=== PATIENT | female | born 1990 | race Caucasian/White ===

== ENCOUNTER → 2018-07-31 | Outpatient (CLI) | payer OTHER | LOC: GMAJ 16:57 | PROVIDERS: ATTEND Family Medicine | DX: R53.83 Other fatigue (principal) ==

== ENCOUNTER → 2018-09-15 | Outpatient (CLI) | payer OTHER ==
--- NOTE | 2018-09-15 11:17 | RAD ---
EXAM DESCRIPTION: Pelvis CLINICAL HISTORY: PAIN IN RT HIP COMPARISON: None. IMPRESSION: Single AP supine view of the pelvis shows no evidence of acute fracture, focal bone destruction, or joint dislocation. No advanced arthrosis is identified. Electronically signed by: Edmund Nava MD 09/15/2018 11:16 AM CDT
== END ==
LOC: RAD 09:42
PROVIDERS: ATTEND Orthopaedic Surgery
DX: M25.551 Pain in right hip (principal)

== ENCOUNTER → 2018-09-19 | Outpatient (CLI) | payer OTHER ==
--- NOTE | 2018-09-19 12:27 | MRI ---
MRI right knee without contrast INDICATION: Meniscal tear knee pain initial encounter TECHNIQUE: Noncontrast MR imaging right knee standard protocol FINDINGS: There is a diffuse ACL tear full-thickness with pivot shift contusions posterior lateral tibial plateau and lateral femoral condyle. Stinson's cyst measuring nearly 5 cm craniocaudal. PCL is intact. Extensor tendons are intact. Mild grade 1 fibular collateral sprain. MCL is intact. Mild lateral patellar tilt and minimal lateral patellar tracking. There is a posterior lateral corner muscular strain adjacent to the fibula. Fairly large joint effusion/hemarthrosis. IMPRESSION: Acute ACL tear right knee complete with acute pivot shift contusions Mild grade 1 fibular collateral sprain Posterior lateral corner muscular strain especially lateral soleus region Moderate to large joint effusion Small partially ruptured Stinson's cyst Electronically signed by: Devan Hurley MD 09/19/2018 12:26 PM CDT
== END ==
LOC: MRI 08:57
PROVIDERS: ATTEND Orthopaedic Surgery
DX: S83.241A Other tear of medial meniscus, current injury, right knee, initial encounter (principal); S83.511A Sprain of anterior cruciate ligament of right knee, initial encounter; M66.0 Rupture of popliteal cyst; M25.461 Effusion, right knee

== ENCOUNTER → 2020-08-23 | Outpatient (CLI) | payer OTHER | LOC: GMAJ 16:41 | PROVIDERS: ATTEND Family Medicine | DX: R10.13 Epigastric pain (principal) ==

== ENCOUNTER → 2020-08-29 | Outpatient (CLI) | payer OTHER ==
--- NOTE | 2020-08-29 12:22 | CT ---
EXAM DESCRIPTION: Abdomen/Pelvis w/wo Contrast CLINICAL HISTORY: 30 years Female, INTRA-ABDOMINAL AND PELVIC SWELLING, MASS AND LUMP TECHNIQUE: This exam was performed according to our departmental dose-optimization program, which includes automated exposure control, adjustment of the mA and/or kV according to patient size and/or use of iterative reconstruction technique. COMPARISON: None at time of initial interpretation. FINDINGS: Visualized lung bases are grossly unremarkable. The liver is unremarkable. No suspicious hepatic lesion. No biliary dilatation. The gallbladder is unremarkable. The portal vein is patent. The spleen, pancreas and adrenal glands are unremarkable. Symmetric renal parenchymal enhancement. No hydronephrosis. No urolithiasis. Unremarkable bladder. The uterus is anteverted. Large nonenhancing cystic mass in the abdomen and pelvis measuring 30 x 22 x 10 cm. No evidence of bowel obstruction or focal inflammatory change. No findings to suggest appendicitis. Normal appendix. No adenopathy. No focal fluid collection. No free air. Normal caliber abdominal aorta. No acute or suspicious osseous abnormality. IMPRESSION: Large nonenhancing cystic mass in the abdomen and pelvis measuring 30 cm, which may be adnexal in origin. Recommend surgical consultation. Electronically signed by: Vidal Murphy MD 08/29/2020 12:20 PM CDT
--- NOTE | 2020-08-29 16:32 | US ---
PROVIDED CLINICAL HISTORY/REASON FOR EXAM: RIGHT UPPER QUADRANT PAIN COMPARISON STUDY: Same day CT. TECHNIQUE: Grayscale and limited doppler examination of the abdomen was obtained. FINDINGS: Pancreas: Obscured by bowel gas. Liver: Parenchymal morphology is unremarkable. No intrahepatic masses are identified. No significant intrahepatic biliary system dilatation. CBD: Measures 4 mm. Within normal limits for age. Gallbladder: Normal with no stones or wall thickening. Kidneys: Both are normal in size and shape. The right kidney measures 8.9 x 4.1 x 4.5 cm. The left kidney measures 10.8 x 6.0 x 4.4cm. No suspicious masses are seen. No hydronephrosis noted. Spleen: Normal sonographic appearance. The spleen measures 13.1 cm in length. Retroperitoneal structures: IVC is unremarkable in appearance. Aorta is without evidence of aneurysm formation. Redemonstrated cystic lesion in the abdomen and pelvis measuring at least 30 cm. IMPRESSION: Redemonstrated large cystic lesion in the abdomen and pelvis measuring at least 30 cm. Recommend surgical consultation. Electronically signed by: Vidal Murphy MD 08/29/2020 4:30 PM CDT
== END ==
LOC: US 09:57
PROVIDERS: ATTEND Family Medicine
DX: R19.00 Intra-abdominal and pelvic swelling, mass and lump, unspecified site (principal); R10.11 Right upper quadrant pain

== ENCOUNTER → 2020-09-02 | Outpatient (CLI) | payer OTHER | LOC: GMAJ 13:54 | PROVIDERS: ATTEND Family Medicine | DX: R19.00 Intra-abdominal and pelvic swelling, mass and lump, unspecified site (principal) ==

== ENCOUNTER 2020-10-09 10:04 | Emergency (ER) | payer OTHER ==
[2020-10-09] MEDS ORDERED: SODIUM CHLORIDE 0.9% 1000ML 1,000 ML IVS ONE (10:15)
[2020-10-09] MEDS ORDERED: MORPHINE SULFATE INJ 10 MG/ML VIAL IV ONE (10:15)
[2020-10-09] MEDS ORDERED: ONDANSETRON INJ 4 MG/2 ML VIAL IV ONE (10:15)
--- NOTE | 2020-10-09 10:18 | ED.PDOC ---
History of Present Illness - General Time Seen by Provider: 10/09/20 10:12 Source: patient, RN notes reviewed, Vital Signs reviewed, family Exam Limitations: no limitations - History of Present Illness Initial Comments: Patient is a 30-year-old female who presents to ED with constipation and lower abdominal pain. States she had surgery at [facility] 10 days ago for removal of a right ovarian cyst that was approximately 10 cm. States she has been taking Tylenol with codeine and Colace at home. States she has not had a bowel movement in the past 4 days and developed nausea this morning. She called her surgeon's nurse who told her to come to ED for evaluation. She denies fever, vomiting, chills, difficulty urinating or dysuria. Allergies/Adverse Reactions: Allergies Penicillins Allergy (Verified 10/09/20 11:00) Home Medications: Ambulatory Orders Acetaminophen W/ Codeine [Tylenol W/ CODEINE #3] 1 ea PO Q6H PRN 10/09/20 Bisacodyl Suppository 10Mg [Dulcolax Suppository 10mg] 1 ea SC DAILY PRN #5 sup 10/09/20 Duloxetine HCl [Cymbalta] 60 mg PO DAILY 10/09/20 Polyethylene Glycol 3350 [Miralax] 17 gm PO DAILY 15 Days #238 bottle 10/09/20 Review of Systems - Review of Systems Constitutional: Denies: chills, fever, weakness EENTM: Denies: nose congestion, throat pain Respiratory: Denies: cough, short of breath Cardiology: Denies: chest pain, edema, palpitations Gastrointestinal/Abdominal: States: abdominal pain, constipation, nausea. Denies: diarrhea, vomiting Genitourinary: Denies: dysuria, frequency Musculoskeletal: Denies: back pain, neck pain Skin: States: no symptoms reported Neurological: Denies: headache All other Systems: Reviewed and Negative Family Medical History - Family History Mother Family History: No Known Living Status: Still Living Physical Exam - Physical Exam General Appearance: Alert, Comfortable, No apparent distress Neck: full range of motion, supple Respiratory: chest non-tender, lungs clear, normal breath sounds, no respiratory distress Cardiovascular/Chest: regular rate, rhythm, no edema, no murmur Gastrointestinal/Abdominal: other - soft. TTP bilateral lower quadrants. Midline vertical surgical incision is c/d/i. No erythema. Steristrips in place Back Exam: no CVA tenderness, no vertebral tenderness Extremity: normal range of motion, non-tender Neurologic: no motor/sensory deficits, alert, normal mood/affect Skin Exam: normal color, warm/dry Progress - Progress Progress: 10/09/20 10:20 DDX: bowel obstruction, constipation, appendicitis, colitis, biliary colic 10/09/20 12:23 Patient presents to ED for constipation and lower abdominal pain. Vital signs are reassuring. CT A/P performed to evaluate for bowel obstruction and shows postoperative changes with no acute findings. Pain is well controlled at this t dieter and patient is tolerating p.o. fluids well. She feels comfortable going home on laxatives for constipation and will follow up with her surgeon in 1 to 2 days for continued evaluation. Strict return precautions given. - Results/Orders Results/Orders: CT ABD/PELVIS IMPRESSION: 1. Status post removal of large pelvic cyst. There is no acute abnormality identified. No ileus or bowel obstruction. There is a small amount of intraperitoneal free air that is present. This is compatible with recent surgery. There is also a small focus of free fluid in the lower pelvis. No abscess. 2. Very small right pleural effusion and associated dependent atelectasis. 3. 3.5 cm left adnexal cyst. This is unlikely the cause of patient's symptoms. 10/09/20 10:15 Hold Metformin x 48Hrs [id number] Laboratory Results - last 24 hr 10/09/20 10/09/20 10/09/20 10:31 10:31 10:31 WBC 8.1 RBC 4.66 Hgb 14.2 Hct 41.4 MCV 88.9 MCH 30.5 MCHC 34.3 RDW 12.9 Plt Count 230 MPV 8.3 Absolute Neuts (auto) 6.50 Absolute Lymphs (auto) 0.90 L Absolute Monos (auto) 0.50 Absolute Eos (auto) 0.10 Absolute Basos (auto) 0.00 Neutrophils % 80.2 H Lymphocytes % 11.3 L Monocytes % 6.5 Eosinophils % 1.5 Basophils % 0.5 Sodium 137 Potassium 3.8 Chloride 101 Carbon Dioxide 26 Anion Gap 13.8 BUN 11 Creatinine 0.94 BUN/Creatinine Ratio 11.7 Random Glucose 101 Serum Osmolality 273.4 L Calcium 8.9 Total Bilirubin 0.7 AST 27 ALT 36 Alkaline Phosphatase 42 Serum Total Protein 7.4 Albumin 4.1 Globulin 3.3 Albumin/Globulin Ratio 1.2 Serum HCG, Qual Negative Urine Color Urine Appearance Urine pH Ur Specific [place] Urine Protein Urine Glucose (UA) Urine Ketones Urine Blood Urine Nitrite Urine Bilirubin Urine Urobilinogen Ur Leukocyte Esterase Urine RBC Urine WBC Ur Epithelial Cells Urine Bacteria 10/09/20 12:07 WBC RBC Hgb Hct MCV MCH MCHC RDW Plt Count MPV Absolute Neuts (auto) Absolute Lymphs (auto) Absolute Monos (auto) Absolute Eos (auto) Absolute Basos (auto) Neutrophils % Lymphocytes % Monocytes % Eosinophils % Basophils % Sodium Potassium Chloride Carbon Dioxide Anion Gap BUN Creatinine BUN/Creatinine Ratio Random Glucose Serum Osmolality Calcium Total Bilirubin AST ALT Alkaline Phosphatase Serum Total Protein Albumin Globulin Albumin/Globulin Ratio Serum HCG, Qual Urine Color Yellow Urine Appearance Clear Urine pH 7.5 Ur Specific [place] 1.015 Urine Protein Negative Urine Glucose (UA) Negative Urine Ketones Negative Urine Blood Negative Urine Nitrite Negative Urine Bilirubin Negative Urine Urobilinogen 0.2 Ur Leukocyte Esterase Negative Urine RBC 0 Urine WBC 0 Ur Epithelial Cells 3-5 Urine Bacteria 0 Departure - Departure Clinical Impression: Post-operative pain Abdominal pain Qualifiers: Abdominal location: lower abdomen, unspecified Qualified Code(s): R10.30 - Lower abdominal pain, unspecified Constipation Qualifiers: Constipation type: unspecified constipation type Qualified Code(s): K59.00 - Constipation, unspecified Time of Disposition: 12:25 Disposition: Discharge to Home or Self Care Condition: Good Departure Forms: ED Discharge - Pt. Copy, Patient Portal Self Enrollment Instructions: Acute Abdomen (Belly Pain), Adult (DC) Diet: resume usual diet Activity: increase activity as tolerated Referrals: Yovani Le MD [Primary Care Provider] - 1-2 Days Prescriptions: Bisacodyl Suppository 10Mg [Dulcolax Suppository 10mg] 1 ea SC DAILY PRN #5 sup PRN Reason: Constipation Polyethylene Glycol 3350 [Miralax] 17 gm PO DAILY 15 Days #238 bottle Home Medications: Ambulatory Orders Acetaminophen W/ Codeine [Tylenol W/ CODEINE #3] 1 ea PO Q6H PRN 10/09/20 Bisacodyl Suppository 10Mg [Dulcolax Suppository 10mg] 1 ea SC DAILY PRN #5 sup 11/15/20 Duloxetine HCl [Cymbalta] 60 mg PO DAILY 10/09/20 Polyethylene Glycol 3350 [Miralax] 17 gm PO DAILY 15 Days #238 bottle 10/09/20
--- NOTE | 2020-10-09 11:25 | CT ---
EXAM DESCRIPTION: Abdomen/Pelvis w/Contrast RadLex: CT ABDOMEN PELVIS WITH IV CONTRAST CLINICAL HISTORY: 30 years Female; right abd pain, nausea. ovarian cyst removal 10 d, MAIN TECHNIQUE: CT of the abdomen and pelvis using intravenous contrast.. No oral contrast. All CT scans at this facility use dose modulation, iterative reconstruction, and/or weight based dosing when appropriate to reduce radiation dose to as low as reasonably achievable. COMPARISON: CT August 29, 2020. FINDINGS: Chest: There is a very small right pleural effusion with adjacent dependent atelectasis. Abdomen/Pelvis: Liver:The liver is normal in size and contour. There is no focal hepatic abnormality. No intrahepatic bile duct dilatation. Gallbladder:The gallbladder is not overly distended. It has a normal thin wall. No gallstones are present. The common bile duct is nondilated. Pancreas:Within normal limits Spleen:Normal size. No abnormality. Right kidney:No hydronephrosis. No focal lesion. Left kidney:No hydronephrosis. No focal lesion. Adrenal glands:Within normal limits Vascular structures:Abdominal aorta is normal in caliber. Lymph nodes: No enlarged nodes. Bowel: The stomach is nondistended. Large and small bowel are normal in caliber. No findings of bowel obstruction or ileus. No bowel wall thickening or pneumatosis. Appendix:No appendicitis. Fluid collections: There are small scattered areas of pneumoperitoneum. This is consistent with recent surgery. There is also a very small focus of free fluid within the pelvis. No rim enhancement. Abdominal wall: There is a midline abdominal wall incision which appears as expected. No associated fluid collection or dehiscence. Bones: No acute bone findings. Lumbar spine and pelvic bones are normal in appearance. Bladder: There is a small amount of gas within the urinary bladder, likely reflecting instrumentation.. Pelvis: The large cyst that was present on previous exam is no longer present. There is a 3.5 cm left adnexal cyst. The uterus has a normal appearance. IMPRESSION: 1. Status post removal of large pelvic cyst. There is no acute abnormality identified. No ileus or bowel obstruction. There is a small amount of intraperitoneal free air that is present. This is compatible with recent surgery. There is also a small focus of free fluid in the lower pelvis. No abscess. 2. Very small right pleural effusion and associated dependent atelectasis. 3. 3.5 cm left adnexal cyst. This is unlikely the cause of patient's symptoms. Electronically signed by: Jesus Kaye MD 10/09/2020 11:24 AM [facility]
[2020-10-09 12:36] VITALS: BP 123/88; TEMP 97.8; O2SAT 97
== END 2020-10-09 12:36 | disposition home or self-care (01) ==
LOC: ER 10:04
DX: G89.18 Other acute postprocedural pain (principal); R10.30 Lower abdominal pain, unspecified; K59.00 Constipation, unspecified; R11.0 Nausea; N83.202 Unspecified ovarian cyst, left side; Z87.42 Personal history of other diseases of the female genital tract; Z88.0 Allergy status to penicillin
CPT/HCPCS: 36415; 74177; 80053; 81001; 84703; 85025; J2270; J2405; J7030